=== PATIENT | female | born 1980 | race Caucasian/White ===

== ENCOUNTER 2024-01-08 22:36 | Inpatient (IN) | payer OTHER, MEDICAID ==
[~2024-01-08] VITALS: Ht 162.6 cm; Wt 104.8 kg
[2024-01-08 23:00] VITALS: BP_SYST 155; BP_DIAS 95; BP_DIAS 97; PULSE 90; RESP 20; TEMP 37.00296; TEMP 37.0296; O2SAT 95
[2024-01-08] MEDS ORDERED: SODIUM CHLORIDE 0.9% 3ML FLUSH IVF PRN (23:45)
[2024-01-08] MEDS ORDERED: NON FORMULARY MED XX SCH ×3 (23:45)
[2024-01-08] MEDS ORDERED: BACITRACIN 14GM TUBE TOP SCH (23:45)
[2024-01-09] MEDS ORDERED: ACETAMINOPHEN 500MG TABLET PO SCH
[2024-01-09] MEDS ORDERED: MAGNESIUM OXIDE 400MG TABLET PO PRN (00:15)
[2024-01-09] MEDS ORDERED: MAGNESIUM 2 G PREMIX 50 ML IV PRN (00:15)
[2024-01-09] MEDS ORDERED: OXYCODONE HCL 5MG TABLET PO PRN ×2 (01:30)
[2024-01-09] MEDS: ONDANSETRON HCL 4MG/2ML INJ IV PRN (04:22)
[2024-01-09] MEDS: OXYCODONE HCL 5MG TABLET PO PRN (04:24)
[2024-01-09] MEDS: SODIUM CHLORIDE 0.9% 1,000 ML IV SCH (04:24)
[2024-01-09] MEDS: GABAPENTIN 300MG CAPSULE PO SCH (06:04)
[2024-01-09] MEDS: LEVETIRACETAM 500MG PREMIX 100 ML IV SCH (06:04)
[2024-01-09] MEDS: ACETAMINOPHEN 500MG TABLET PO SCH (06:05)
[2024-01-09] MEDS: BACITRACIN 14GM TUBE TOP SCH (06:06)
[2024-01-09 06:47] LABS: CHLORIDE 103 mEq/L (98-107); POTASSIUM 3.6 mEq/L (3.5-5.1); SODIUM 139 mEq/L (136-145)
[2024-01-09 06:48] LABS: CALCIUM 8.3 mg/dL (8.7-10.4); CARBON DIOXIDE 31 mEq/L (21-32)
[2024-01-09 06:53] LABS: CREATININE 0.5 mg/dL (0.6-1.0); GLUCOSE 119 mg/dL (70-105); UREA NITROGEN BLOOD 6 mg/dL (9-23)
[2024-01-09 06:55] LABS: ALANINE AMINOTRANSFERASE 73 IU/L (10-49); ALBUMIN 3.4 g/dL (3.2-4.8); ASPARTATE AMINOTRANSFERASE 44 IU/L (<34); BILIRUBIN TOTAL 1.4 mg/dL (0.1-1.0); PROTEIN TOTAL 5.6 g/dL (6.0-8.3)
[2024-01-09 07:03] LABS: BASOPHILS % 0.2 % (0.0-2.0); EOSINOPHILS % 3.3 % (0.0-5.0); HEMATOCRIT. 29.7 % (36.0-48.0); HEMOGLOBIN. 9.4 g/dL (12.0-16.0); LYMPHOCYTES % 17.1 % (20.0-50.0); MEAN CORPUSCULAR HEMOGLOBIN 25.7 pg (28.0-32.0); MEAN CORPUSCULAR HGB CONC 31.7 g/dL (31.0-37.0); MEAN PLATELET VOLUME 8.4 fl (7.4-10.4); MONOCYTES % 4.9 % (2.0-8.0); NEUTROPHILS % 74.5 % (40.0-76.0); PLATELET 331 x1000/uL (130-400); RED BLOOD CELL COUNT 3.66 mill/uL (4.2-5.4); RED CELL DISTRIBUTION WIDTH 16.8 % (11.6-14.6); WHITE BLOOD COUNT 5.9 x1000/uL (4.5-11.0)
[2024-01-09 08:00] VITALS: PULSE 96; RESP 19; TEMP 37.89192; O2SAT 97
[2024-01-09 08:03] VITALS: BP 155/95; PULSE 91; RESP 20; TEMP 37.00296; O2SAT 95
[2024-01-09] MEDS: ENOXAPARIN 30MG/0.3ML SYR SUBCUT SCH (08:21)
[2024-01-09] MEDS: METHOCARBAMOL 500MG TABLET PO SCH (08:21)
[2024-01-09] MEDS: METOCLOPRAMIDE HCL 10MG/2ML VIAL IV SCH (08:21)
[2024-01-09] MEDS: MECLIZINE 25MG TABLET PO SCH (08:22)
[2024-01-09] MEDS: SILVER SULFADIAZINE 1% CREAM 25GM TOP SCH (08:22)
[2024-01-09 20:00] VITALS: BP 94/53; PULSE 94; RESP 17; TEMP 37.16964; O2SAT 95
[2024-01-09] MEDS: SENNOSIDES/DOCUSATE SOD 8.6/50MG TABLET PO SCH (20:54)
[2024-01-10 08:08] VITALS: BP 116/70; PULSE 72; RESP 18; TEMP 36.61404; O2SAT 100
[2024-01-10 13:24] VITALS: BP 115/59; PULSE 86; RESP 18; TEMP 37.89192; O2SAT 100
[2024-01-10 13:30] VITALS: TEMP 36.61404
[2024-01-10 17:37] LABS: CLARITY URINE CLEAR (CLEAR); COLOR URINE YELLOW (YELLOW); GLUCOSE URINE NEGATIVE (NEGATIVE); KETONES URINE 1+ (NEGATIVE); LEUKOCYTE ESTERASE URINE 2+ (NEGATIVE); NITRITE URINE NEGATIVE (NEGATIVE); OCCULT BLOOD URINE 2+ (NEGATIVE); PROTEIN URINE NEGATIVE (NEGATIVE); SPECIFIC GRAVITY URINE 1.014 (1.005-1.030)
[2024-01-10 17:52] LABS: BACTERIA URINE 2+; SQUAMOUS EPITHELIAL CELL URINE 1+ /lpf (RARE/1+)
[2024-01-10 20:00] VITALS: BP 106/69; PULSE 89; RESP 16; TEMP 37.16964; O2SAT 95
[2024-01-10] MEDS: METOCLOPRAMIDE HCL 10MG TABLET PO SCH (21:05)
[2024-01-10] MEDS: LEVETIRACETAM 500MG TABLET PO SCH (21:05)
[2024-01-11 08:15] VITALS: BP 103/58; PULSE 80; RESP 16; TEMP 36.61404; O2SAT 98
[2024-01-11] MEDS: NITROFURANTOIN 100MG M/M CAPSULE PO SCH (08:38)
[2024-01-11] MEDS: OXYCODONE HCL 5MG TABLET PO PRN (17:28)
[2024-01-11 20:00] VITALS: BP 125/51; PULSE 88; RESP 18; TEMP 37.28076; O2SAT 100
[2024-01-12 08:00] VITALS: BP 91/58; PULSE 85; RESP 18; TEMP 36.28068; O2SAT 95
[2024-01-12] MEDS ORDERED: NALOXONE HCL 0.4MG/ML VIAL IV PRN (16:30)
[2024-01-12 20:00] VITALS: BP 106/57; PULSE 78; RESP 18; TEMP 36.72516; O2SAT 98
[2024-01-13 08:00] VITALS: BP 107/65; PULSE 78; RESP 19; TEMP 35.94732; O2SAT 96
[2024-01-13 20:00] VITALS: BP 100/64; PULSE 87; RESP 19; TEMP 36.6696; O2SAT 96
[2024-01-14 06:18] LABS: CHLORIDE 103 mEq/L (98-107); POTASSIUM 4.3 mEq/L (3.5-5.1); SODIUM 136 mEq/L (136-145)
[2024-01-14 06:19] LABS: CARBON DIOXIDE 27 mEq/L (21-32)
[2024-01-14 06:20] LABS: CALCIUM 9.2 mg/dL (8.7-10.4)
[2024-01-14 06:21] LABS: BASOPHILS % 0.6 % (0.0-2.0); EOSINOPHILS % 3.1 % (0.0-5.0); HEMATOCRIT. 29.2 % (36.0-48.0); HEMOGLOBIN. 9.3 g/dL (12.0-16.0); LYMPHOCYTES % 22.1 % (20.0-50.0); MEAN CORPUSCULAR HEMOGLOBIN 26.4 pg (28.0-32.0); MEAN CORPUSCULAR HGB CONC 31.7 g/dL (31.0-37.0); MEAN CORPUSCULAR VOLUME 83.1 fL (81.0-99.0); MEAN PLATELET VOLUME 8.2 fl (7.4-10.4); MONOCYTES % 6.7 % (2.0-8.0); NEUTROPHILS % 67.5 % (40.0-76.0); PLATELET 333 x1000/uL (130-400); RED BLOOD CELL COUNT 3.51 mill/uL (4.2-5.4); RED CELL DISTRIBUTION WIDTH 17.6 % (11.6-14.6); WHITE BLOOD COUNT 6.6 x1000/uL (4.5-11.0)
[2024-01-14 06:24] LABS: CREATININE 0.5 mg/dL (0.6-1.0); GLUCOSE 116 mg/dL (70-105); UREA NITROGEN BLOOD 8 mg/dL (9-23)
[2024-01-14 06:26] LABS: ALANINE AMINOTRANSFERASE 67 IU/L (10-49); ALBUMIN 3.9 g/dL (3.2-4.8); ASPARTATE AMINOTRANSFERASE 36 IU/L (<34)
[2024-01-14 06:27] LABS: BILIRUBIN DIRECT 0.2 mg/dL (<=3.0); BILIRUBIN TOTAL 0.7 mg/dL (0.1-1.0); PROTEIN TOTAL 6.2 g/dL (6.0-8.3)
[2024-01-14 08:00] VITALS: BP 109/52; PULSE 71; RESP 18; TEMP 36.16956; O2SAT 100
[2024-01-14] MEDS ORDERED: NALOXONE HCL 0.4MG/ML VIAL IV PRN (17:30)
[2024-01-14 20:00] VITALS: BP 111/72; PULSE 90; RESP 18; TEMP 36.50292; O2SAT 95
[2024-01-14] MEDS: AMITRIPTYLINE 10MG TABLET PO SCH (21:58)
[2024-01-15 08:00] VITALS: BP 106/68; PULSE 68; RESP 18; TEMP 36.22512; O2SAT 98
[2024-01-15] MEDS: TRAMADOL 50MG TABLET PO PRN (08:55)
[2024-01-16 08:00] VITALS: BP 103/67; PULSE 77; RESP 20; TEMP 36.72516; O2SAT 98
[2024-01-16 20:00] VITALS: BP 113/55; PULSE 88; RESP 18; TEMP 36.6696; O2SAT 95
[2024-01-17 08:00] VITALS: BP 105/60; PULSE 76; RESP 20; TEMP 36.28068; O2SAT 99
[2024-01-17 20:00] VITALS: BP 116/62; PULSE 76; RESP 18; TEMP 36.78072; O2SAT 96
[2024-01-18 08:00] VITALS: BP 125/62; PULSE 74; RESP 20; TEMP 36.16956; O2SAT 100
[2024-01-18 20:05] VITALS: BP 114/76; PULSE 86; RESP 18; TEMP 37.2252; O2SAT 96
[2024-01-19 08:00] VITALS: BP 103/59; PULSE 70; RESP 18; TEMP 36.3918; O2SAT 100
[2024-01-19] MEDS: TRAMADOL HCL/ACETAMINOPHEN 37.5/325MG TABLET PO PRN (13:38)
[2024-01-19 20:00] VITALS: BP 101/60; PULSE 83; RESP 18; TEMP 36.33624; O2SAT 97
[2024-01-20 08:00] VITALS: BP 105/56; PULSE 66; RESP 18; TEMP 36.28068; O2SAT 96
[2024-01-20 22:00] VITALS: BP 110/62; PULSE 76; RESP 18; TEMP 36.33624; O2SAT 98
[2024-01-21 08:00] VITALS: BP 120/76; PULSE 72; RESP 18; TEMP 36.50292; O2SAT 98
[2024-01-21 20:00] VITALS: BP 104/58; PULSE 75; RESP 19; TEMP 37.72524; O2SAT 95
[2024-01-22] MEDS: ACETAMINOPHEN 500MG TABLET PO SCH ×2 (05:36→06:47)
[2024-01-22 07:58] VITALS: BP 99/58; PULSE 68; RESP 20; TEMP 36.50292; O2SAT 97
[2024-01-22 20:00] VITALS: BP 134/68; PULSE 75; RESP 19; TEMP 37.00296; O2SAT 94
[2024-01-23 02:45] VITALS: BP 134/68; PULSE 75; RESP 19; TEMP 37.00296; O2SAT 94
[2024-01-23 08:00] VITALS: BP 115/77; PULSE 91; RESP 20; TEMP 36.6696; O2SAT 99
[2024-01-23 20:00] VITALS: BP 111/69; PULSE 65; RESP 17; TEMP 36.55848; O2SAT 95
[2024-01-24 08:00] VITALS: BP 101/60; PULSE 72; RESP 20; TEMP 37.00296; O2SAT 100
[2024-01-24 20:00] VITALS: BP 101/58; PULSE 78; RESP 18; TEMP 36.55848; O2SAT 95
[2024-01-25 08:00] VITALS: BP 115/75; PULSE 70; RESP 20; TEMP 36.44736; O2SAT 95
[2024-01-25 20:00] VITALS: BP 102/52; PULSE 78; RESP 18; TEMP 36.78072; O2SAT 78
[2024-01-26 08:00] VITALS: BP 108/62; PULSE 72; RESP 20; TEMP 36.3918; O2SAT 96
[2024-01-26 20:00] VITALS: BP 105/57; PULSE 77; RESP 17; TEMP 36.72516; O2SAT 96
[2024-01-27 08:00] VITALS: BP 99/63; PULSE 66; RESP 18; TEMP 36.50292; O2SAT 99
[2024-01-27] MEDS ORDERED: SENN1TAB35 PO (10:10)
[2024-01-27] MEDS ORDERED: GABA-532 PO (10:10)
[2024-01-27] MEDS ORDERED: TOPUD MT (10:10)
[2024-01-27] MEDS ORDERED: KEPP500 PO (10:10)
[2024-01-27 10:29] VITALS: BP 99/63; PULSE 66; TEMP 97.7; O2SAT 99
== END 2024-01-27 16:37 | disposition home health service (06) | DRG 930 ==
PROVIDERS: ADMIT Psychiatry & Neurology Neurology; ATTEND Internal Medicine
DX: S06.4XAA Epidural hemorrhage with loss of consciousness status unknown, initial encounter (principal); S32.591A Other specified fracture of right pubis, initial encounter for closed fracture; S01.01XA Laceration without foreign body of scalp, initial encounter; E66.01 Morbid (severe) obesity due to excess calories; S92.101A Unspecified fracture of right talus, initial encounter for closed fracture; S22.32XA Fracture of one rib, left side, initial encounter for closed fracture; R11.0 Nausea; Z91.81 History of falling; I51.7 Cardiomegaly; V03.10XA Pedestrian on foot injured in collision with car, pick-up truck or van in traffic accident, initial encounter; Z68.39 Body mass index [BMI] 39.0-39.9, adult; Y93.89 Activity, other specified; Y92.89 Other specified places as the place of occurrence of the external cause; Y99.8 Other external cause status; S02.19XA Other fracture of base of skull, initial encounter for closed fracture
CPT/HCPCS: 36415; 80048; 80053; 80076; 81003; 83036; 83735; 84100; 85025; 92523; 93970; 97110; 97116; 97150; 97162; 97166; 97530; 97535; 97542; A6261; C1893; J1650; J1953; J2405; J2765; J7030; J8597